=== PATIENT | female | born 1990 ===

== ENCOUNTER 2018-06-25 15:04 | Outpatient (REF) | payer BC, SELFPAY ==
--- NOTE | 2018-06-25 11:30 | PAPFT_PTH ---
PATIENT: DOMINIQUE LACKEY LOC: [facility] U#:[id number] AGE/SX: 28/F ROOM: RE06/25/[address]: Mel Cantu : 1990 BED: DIS: 06/25/2018 SPEC #: [id number] RECD: 06/26/18 12:57 STATUS: MARANDA REQ #: [id number] TAMELA: 06/25/18 11:[address]: Mel Cantu DEPT: [facility] Cytology RECD BY: Ronel Lui Tissues: 1 - CX/ENDOCX FOR PAP SMEARS Procedures: PAP THIN PREP/[facility] Screening HPV DNA PROBE Comments: [id number]
== END 2018-06-25 15:24 ==
LOC: NCHCN 15:04
PROVIDERS: PCP Nurse Practitioner Family; Visit Provider Nurse Practitioner Family
DX: Z12.4 Encounter for screening for malignant neoplasm of cervix (principal); Z11.51 Encounter for screening for human papillomavirus (HPV); Z00.00 Encounter for general adult medical examination without abnormal findings; Z01.419 Encounter for gynecological examination (general) (routine) without abnormal findings
CPT/HCPCS: 88142; 87624

== ENCOUNTER 2018-07-30 12:32 | Outpatient (REF) | payer BC, SELFPAY ==
[2018-07-30 21:25] LABS: TSH (W/Ref FT4) 6.79 uIU/mL (0.358-3.74)
== END 2018-07-30 12:52 ==
LOC: NCHCN 12:32
PROVIDERS: PCP Nurse Practitioner Family; Visit Provider Nurse Practitioner Family
DX: E03.9 Hypothyroidism, unspecified (principal)
CPT/HCPCS: 84439; 84443